=== PATIENT | female | born 1985 | race Caucasian/White ===

== ENCOUNTER 2021-07-11 21:32 | Emergency (ER) | payer OTHER ==
[~2021-07-11] VITALS: Ht 165.1 cm; Wt 59.1 kg
[2021-07-11 21:36] VITALS: BP 148/66; PULSE 84; TEMP 98.1
[2021-07-11] MEDS ORDERED: CLEOCIN HCL300 MG PO (22:01)
== END 2021-07-11 22:10 | disposition home or self-care (01) ==
LOC: COL.ER 21:32
DX: K08.89 Other specified disorders of teeth and supporting structures (principal); Z88.1 Allergy status to other antibiotic agents